=== PATIENT | female | born 1945 | race Caucasian/White ===

== ENCOUNTER → 2018-09-08 | Outpatient (CLI) | payer MEDICARE ==
--- NOTE | 2018-09-08 16:22 | XR ---
EXAMINATION TYPE: XR chest 2V DATE OF EXAM: 09/08/2018 COMPARISON: Prior chest x-ray 09/22/2014 HISTORY: Shortness of breath, edema and abnormal coagulation TECHNIQUE: Frontal and lateral views of the chest are obtained. FINDINGS: Patient is again rotated. There is no focal air space opacity, pleural effusion, or pneumot horax seen. The cardiac silhouette size is within normal limits. The osseous structures are intact . Minimal strand-like density in the left lung may represent subsegmental atelectasis or scar. Surgic al clips present in the upper abdomen. Aorta is dense. IMPRESSION: Findings similar to prior exam. There may be some minimal subsegmental atelectasis or sca rring
--- NOTE | 2018-09-08 16:53 | NM ---
EXAMINATION TYPE: NM pul vent and perfuse DATE OF EXAM: 09/08/2018 COMPARISON: NONE HISTORY: Chest pain. Edema. TECHNIQUE: Utilizing inhalation of 36.7 mCi Tc 99m DTPA aerosol and intravenous injection of 4.97 mC i of Tc 99m MAA, ventilation and perfusion images are acquired post injection in multiple projections . FINDINGS: There are multiple subsegmental ventilation and perfusion abnormalities in the left lower lobe. The v entilation abnormalities are more than the perfusion abnormalities. The right lung appears fairly normal. IMPRESSION: Abnormal ventilation and perfusion in the left lower lung field that corresponds to a low probability of pulmonary embolism. This is consistent with airway disease.
--- NOTE | 2018-09-09 08:34 | US ---
EXAMINATION TYPE: US venous doppler duplex LE BI DATE OF EXAM: 09/08/2018 5:46 PM COMPARISON: NONE CLINICAL HISTORY: R79.1 Abnormal Coagulation,R60.9 Edema,R06.02SOB. Abnormal coagulation. Swelling b ilateral legs. *Difficult exam due to patient body habitus and leg edema. SIDE PERFORMED: Bilateral TECHNIQUE: The lower extremity deep venous system is examined utilizing real time linear array sonog ajith with graded compression, doppler sonography and color-flow sonography. VESSELS IMAGED: External Iliac Vein (EIV) Common Femoral Vein Deep Femoral Vein Greater Saphenous Vein * Femoral Vein Popliteal Vein Small Saphenous Vein * Proximal Calf Veins (* superficial vessels) There is normal flow, compressibility, vascular waveforms. Right Leg: Negative for DVT. Hypoechoic area with echogenic center seen with vascularity upper medial thigh: 4.2 x 2.1 x 1.8cm. Left Leg: Negative for DVT IMPRESSION: No evident deep venous thrombosis at or above the knees. Possible adenopathy right lower extremity at the proximal thigh.
== END | disposition home or self-care (01) ==
LOC: RADNMMAIN 15:25
PROVIDERS: ATTEND Family Medicine
DX: R94.2 Abnormal results of pulmonary function studies (principal); R79.1 Abnormal coagulation profile; R60.9 Edema, unspecified; R06.02 Shortness of breath
CPT/HCPCS: 71046; 93970; 78582; A9540; A9567

== ENCOUNTER → 2018-09-10 | Outpatient (CLI) | payer MEDICARE ==
--- NOTE | 2018-09-10 12:20 | P.STRESS ---
- Stress Test Note Stress Test Results/Findings: Exam Performed: stress echo exercise Exam Date: 09/10/18 Reason for Exam: HEART MURMUR / SOB Height: 5 ft 3 in Weight: 104.326 kg Protocol: DENA Stage: 2 Duration of Exercise: 3:30 Resting Heart Rate: 8 Resting Blood Pressure: 156/49 Maximum Achieved Heart Rate: 128 Maximum Achieved Blood Pressure: 203/69 85% PMHR: 126 100% PMHR: 148 METS: 5.2 Technologist Comment: Stress Test Results/Findings: This is a 72-year-old female with history of hypercholesterolemia, smoking history and family history of ischemic heart disease being evaluated for cardiac status. Patient is also having exertional shortness of breath and has history of heart murmur. Stress data Baseline EKG showed sinus rhythm with normal WI interval and QRS duration. Blood pressure at rest is 156/49, pulse rate of 80. Patient walked on the Dena protocol only 3 minutes and 30 seconds achieving a maximum heart rate of 128 with a blood pressure 153, 101. The test was stopped because of shortness of breath. Patient did not experience any chest pain. EKGs taken during exercise showed about 1 mm horizontal and slightly upsloping ST depression in inferolateral leads. These changes persisted for about 5-6 minutes, in the post exercise period. Echo data: Baseline echo images showed normal wall motion and thickening. Exercise echo images showed augmentation of wall motion in all the segments except the inferobasal wall. Final impression: #1. Borderline positive stress test, based on EKG changes. Patient did not have any chest pain but complained of shortness of breath. #2. Suspicious ischemic changes in the inferobasal segments. #3. Clinical correlation and possible further evaluation to be considered.
== END ==
LOC: RADNMMAIN 09:41
PROVIDERS: ATTEND Family Medicine
DX: R94.39 Abnormal result of other cardiovascular function study (principal); R06.02 Shortness of breath; R01.1 Cardiac murmur, unspecified
CPT/HCPCS: 93351

== ENCOUNTER → 2018-10-01 | Outpatient (CLI) | payer MEDICARE ==
[2018-10-01 11:45] LABS: HCT 36.5 % (34.0-46.0); HGB 11.6 gm/dL (11.4-16.0); MCH 29.7 pg (25.0-35.0); MCHC 31.7 g/dL (31.0-37.0); MCV 93.8 fL (80.0-100.0); Platelet Count 289 k/uL (150-450); RBC 3.89 m/uL (3.80-5.40); WBC 6.4 k/uL (3.8-10.6)
[2018-10-01 11:50] LABS: Potassium 4.6 mmol/L (3.5-5.1)
== END ==
LOC: LABPAT 11:01
PROVIDERS: ATTEND Internal Medicine Interventional Cardiology
DX: Z01.812 Encounter for preprocedural laboratory examination (principal); R07.9 Chest pain, unspecified
CPT/HCPCS: 36415; 80051; 82565; 84520; 85027

== ENCOUNTER 2018-10-14 06:16 | Day surgery (SDC) | payer MEDICARE ==
[2018-10-12 09:13] VITALS: BMI 39.2
[2018-10-14] MEDS ORDERED: ATORVASTATIN 80 MG TAB PO STA (06:32)
[2018-10-14] MEDS ORDERED: NITROGLYCERIN SL TABS 0.4 MG TAB SUBLINGUAL PRN (06:32)
[2018-10-14] MEDS ORDERED: SODIUM CHLORIDE 0.9% 1,000 ML in EMPTY BAG 1 BAG IV ONE (06:32)
[2018-10-14] MEDS ORDERED: ASPIRIN 325 MG TAB PO STA (06:32)
[2018-10-14] MEDS ORDERED: ALPRAZolam 0.5 MG TAB PO PRN (06:32)
[2018-10-14] MEDS ORDERED: ALPRAZolam 0.25 MG TAB PO PRN (06:32)
[2018-10-14 07:19] VITALS: PULSE 54; TEMP 98.4
[2018-10-14] MEDS ORDERED: VERAPAMIL 2.5 MG/ML 2 ML AMP ONE (07:24)
[2018-10-14] MEDS ORDERED: fentaNYL (PF) 50 MCG/ML 2 ML AMP ONE (07:25)
[2018-10-14] MEDS ORDERED: HEPARIN SODIUM 1,000 UN/ML (10ML VL) ONE (07:25)
[2018-10-14] MEDS ORDERED: LIDOCAINE 1% INJ 10MG/ML (20 ML MDV) ONE (07:25)
[2018-10-14] MEDS ORDERED: IV FLUID CONTINUATION 1,000 ML IV ONE (07:33)
[2018-10-14] MEDS ORDERED: fentaNYL (PF) 50 MCG/ML 2 ML AMP IV ONE (07:33)
[2018-10-14] MEDS ORDERED: LIDOCAINE 1% INJ 10MG/ML (20 ML MDV) SQ ONE (07:37)
[2018-10-14] MEDS ORDERED: VERAPAMIL SYRINGE (5 MG/10 ML) INTRAARTER ONE (07:39)
[2018-10-14] MEDS ORDERED: IOPAMIDOL-370 150ML BTL INJ ONE (07:49)
[2018-10-14] MEDS ORDERED: RX INFO: IV CONTRAST WAS GIVEN 1 EACH MISC MISCELLANE PRN (08:00)
[2018-10-14] MEDS ORDERED: SODIUM CHLORIDE 0.9% 1,000 ML IV SCH (08:00)
[2018-10-14] MEDS ORDERED: NON-FORMULARY DRUG (Aspirin Ec 81 MG) PO SCH (09:00)
[2018-10-14] MEDS ORDERED: rOPINIRole HCL 4 MG TABLET PO SCH (09:00)
[2018-10-14] MEDS ORDERED: LISINOPRIL 10 MG TAB PO SCH (09:00)
[2018-10-14] MEDS ORDERED: NON-FORMULARY DRUG (Omeprazole [Omeprazole] 20 MG) PO SCH (09:00)
[2018-10-14] MEDS ORDERED: LEVOTHYROXINE 88 MCG TAB PO SCH (09:00)
[2018-10-14] MEDS ORDERED: PARoxetine 20 MG TAB PO SCH (09:00)
--- NOTE | 2018-10-14 09:36 | CC ---
CARDIAC CATHETERIZATION REPORT Mrs. Melo is a 73-year-old female with known history of hypertension, chronic tobacco use, who has been complaining of progressive dyspnea on exertion, underwent stress test that was consistent with stress-induced ischemia. In view of that, recommendation made regarding cardiac catheterization. The procedure, risks and complication were discussed with the patient, who is in full understanding and agreement. PROCEDURE: Patient was brought to the medical laboratory assistant in the fasting semi-sedated state after receiving fentanyl and Benadryl and achieving moderate conscious sedated state. Using Xylocaine anesthesia and Seldinger technique, a 6-B[place]wanan sheath was introduced in the right radial artery. Selective right and left coronary angiography performed using 5-[place]wanan 3.5 bend right and left Ronak catheter. Multiple views of the coronary artery including hemiaxial views obtained. Following that, a 5-[place]an tight pigtail catheter was introduced in the left ventricle and a 30 degree DILLARD view of the left ventricle was obtained. Following that, catheter and sheath were removed. Hemostasis was obtained with deployment of a TR band. There was no immediate complication patient is returned to her room in stable condition. Of note, the patient received a total of 5000 units of intravenous heparin as well as intra-arterial verapamil. FINDINGS: LEFT MAIN: This is a large-sized vessel, bifurcating into left circumflex, left anterior descending artery, left main coronary artery has no evidence of high-grade stenosis. LEFT ANTERIOR DESCENDING ARTERY: This is a large-sized vessel, reaching toward the apex with a wraparound apex segment, giving rise to a large diagonal branch in mid segment. The left anterior descending artery proximally has a 20% plaque. The rest of the vessel has no high-grade stenosis. LEFT CIRCUMFLEX: This is a large nondominant vessel giving rise to a large obtuse marginal branch. The left circumflex as well as branches have no evidence of obstructive disease. RIGHT CORONARY ARTERY: Tis is a dominant vessel, large in caliber, bifurcating distally into PDA and posterolateral segment and branches. The right coronary artery has no evidence of high-grade stenosis. LEFT VENTRICULOGRAM: Left ventriculogram was performed in 30 degree DILLARD view and revealed normal left ventricular size and systolic function, ejection fraction is 60%. There was no significant mitral regurgitation. HEMODYNAMICS: There was no gradient across the aortic valve, the left ventricle end-diastolic pressure was 16-20 mmHg. CONCLUSION: 1. Mild plaque in the proximal left anterior descending artery. 2. Normal left ventricular size and systolic function. RECOMMENDATION: In view of finding anatomy, would recommend continue medical therapy with aggressive risk modifications being initiated. Those findings and recommendation were discussed with the patient and her family and they are in full understanding and agreement. Duration of procedure is 15 minutes. GARRISON / TERRI: [id number] /
[2018-10-14 13:24] VITALS: RESP 20
[2018-10-14 13:27] VITALS: BP 124/70
[2018-10-14] MEDS ORDERED: ATORVASTATIN 40 MG TAB PO SCH (18:00)
== END 2018-10-14 12:50 | disposition home or self-care (01) ==
LOC: CATHCVL 06:16
PROVIDERS: ATTEND Internal Medicine Interventional Cardiology
DX: I25.10 Atherosclerotic heart disease of native coronary artery without angina pectoris (principal); I10 Essential (primary) hypertension; F17.210 Nicotine dependence, cigarettes, uncomplicated; I87.2 Venous insufficiency (chronic) (peripheral); Z82.49 Family history of ischemic heart disease and other diseases of the circulatory system; R09.89 Other specified symptoms and signs involving the circulatory and respiratory systems; Z79.82 Long term (current) use of aspirin; Z79.890 Hormone replacement therapy; Z79.899 Other long term (current) drug therapy
CPT/HCPCS: 93458; C1894; C1769; J2001; J3010; J1644; Q9967

== ENCOUNTER → 2020-08-09 | Outpatient (CLI) | payer MEDICARE ==
--- NOTE | 2020-08-09 16:27 | XR ---
Lumbosacral spine and sacrum and coccyx HISTORY: Abnormal bone scan Correlation to bone scan from outside institution dated 06/27/2020 5 views lumbosacral spine, 3 views of the sacrum and coccyx Lumbar spine shows postop change status post posterior fusion at L4-5, bone mineralization is reduced . There is a fracture of one of the posterior screws at L5 thought likely on the right. The posterior strut on the left side between the posterior screws at L4 and L5 is not seen. Anterolisthesis grade 1 suspected L4-5, retrolisthesis grade 1 L3-4. There is loss of disc height at intervertebral levels, vacuum phenomena present at L3-4, L4-5. There are laminectomy change is present at L4 and L5, there is a levoscoliosis centered at L3. Surgical clips are present within the pelvis and abdomen. Sacrum and coccyx views are remarkable for the left posterior ilium shows questionable asymmetric scl erosis as compared to the right. Postop change suspected in the right hip. IMPRESSION: Indeterminate uptake involving the posterior left ilium on bone scan could possibly be du e to stress changes, alternate imaging may be of benefit. Fracture of the posterior right screw at L5 may reduce stabilization, posterior strut on the left is absent, correlate with appropriate surgical history. Postop changes are noted. Degenerative disc disease, scoliosis, suspect decreased bone mine ralization.
== END ==
LOC: RADXRMAIN 13:53
PROVIDERS: ATTEND Psychiatry & Neurology Neurology
DX: R93.7 Abnormal findings on diagnostic imaging of other parts of musculoskeletal system (principal)
CPT/HCPCS: 72110; 72220

== ENCOUNTER → 2021-12-07 | Outpatient (CLI) | payer MEDICARE ==
--- NOTE | 2021-12-07 11:30 | CT ---
EXAMINATION TYPE: CT ChestAbdPelvis w con DATE OF EXAM: 12/07/2021 COMPARISON: None HISTORY: 76-year-old female R59.0, history of uterine cancer, Enlarged lymph nodes TECHNIQUE: Contiguous axial scanning of the chest, abdomen, and pelvis performed with IV Contrast, pa tient injected with 50 mL of Isovue 300. 50 mL saline bolus also administered. Delayed images through the kidneys were obtained. Coronal/sagittal reconstructions performed. CT DLP: 2589.2 mGycm Automated exposure control for dose reduction was used. FINDINGS: CHEST: Heart normal size without pericardial effusion. Aorta normal caliber with minimal atherosclerotic arch calcifications and conventional arch vessel br anching anatomy. Prominent but nonenlarged 1.2 cm right axillary lymph node. No additional thoracic lymphadenopathy by CT size criteria. Evaluation of the lungs shows mild emphysematous change. Strandy scarring or atelectasis in the left mid and lower lungs, left greater than right. No consolidation or pleural effusion. ABDOMEN: Small hiatal hernia. Nonspecific 1.1 cm left-sided hepatic hypodensity too small for accurate CT eloise acterization, probable small cyst. Portal venous system is patent. Cholecystectomy clips. Nonenlarged eros hepatic lymph node measuring 7 mm. Nonenlarged or caval lymph node measuring 9 mm. No mesenteric or retroperitoneal lymphadenopathy seen. Adrenal glands, kidneys, spleen, and atrophic pancreas show no gross abnormality. No dilated small bowel, free fluid, or free air. Oral contrast is beginning to enter the cecum. There is moderate stool burden. Redundant sigmoid colo n. No pericolonic inflammatory change. PELVIS: Bladder partially distended. Uterus may be surgically absent. Assessment of the pelvis limited due to metal hardware artifact related to the patient's right hip total arthroplasty. Some surgical clips i n the bilateral shoulder all this. A number of nonenlarged left obturator chain lymph nodes measuring up to 9 mm on the left and 1.4 cm on the right. Left external iliac chain lymph nodes measuring up to 1.5 cm, axial image 96 and 97. Thickened lymph nodes bilateral proximal femoral chains measuring up to 2.4 cm, axial image 119. BONES: Osteitis pubis. Rectal arthroplasty. Moderate degenerative change left hip and left SI joint. Post surgical change L3-S1 posterior and interbody lumbar fusion. Grade 2 anterolisthesis fixed at L4 -L5 and fixed grade 1 at L3-L4. Advanced degenerative disc disease above the fusion L2-L3. Correspond ing laminectomies. Gentle S-shaped scoliosis thoracolumbar spine. IMPRESSION: 1. ENLARGED LYMPH NODES IN BILATERAL PROXIMAL FEMORAL CHAINS IN THE UPPER THIGHS MEASURING UP TO 2.4 CM. CONSIDER TISSUE SAMPLING. 2. Mildly enlarged left external iliac chain lymph nodes up to 1.5 cm. Nonenlarged and mildly enlarge d bilateral obturator chain lymph nodes measuring up to 1.4 cm. If the upper femoral chain lymph node s are positive, these would also be viewed with suspicion. Otherwise, follow-up will be recommended. 3. Status post hysterectomy. Prior surgical clips in both sides of the pelvis. 4. Incidental: COPD with mild emphysema. Small hiatal hernia. Status post L3-S1 posterior and interbo dy lumbar fusion.
== END | disposition home or self-care (01) ==
LOC: RADCTMAIN 08:02
PROVIDERS: ATTEND Internal Medicine Hematology & Oncology
DX: R59.0 Localized enlarged lymph nodes (principal); K44.9 Diaphragmatic hernia without obstruction or gangrene
CPT/HCPCS: 82565; 84520; 71260; 74177; 36415; Q9967 ×2

== ENCOUNTER → 2022-03-08 | Outpatient (CLI) | payer MEDICARE ==
--- NOTE | 2022-03-10 08:01 | PE ---
EXAMINATION TYPE: PET CT fusion skull to thigh DATE OF EXAM: 03/08/2022 COMPARISON: CT chest abdomen and pelvis December 07, 2021 HISTORY: Lymphadenopathy. TECHNIQUE: Following the intravenous administration of 12.0 mCi of F-18 FDG, whole body images are p erformed from the skull base to the midthigh. Images are reviewed on the computer in the coronal, ax ial, and sagittal planes. Reconstructed rotating images are created on independent workstation and r eviewed on the computer. A localization and attenuation correction CT is performed in conjunction w ith the PET scan. Blood glucose level equals 97. SCAN: Initial Scan FINDINGS: SKULL BASE AND NECK: No areas of abnormal hypermetabolic uptake. CHEST, MEDIASTINUM, AND HILAR REGION: No areas of abnormal hypermetabolic uptake. ABDOMEN AND PELVIS: No areas of abnormal hypermetabolic uptake. OSSEOUS STRUCTURES: No areas of abnormal hypermetabolic uptake. OTHER CT: Cholecystectomy clips are redemonstrated. Postsurgical change to the mid to lower lumbar sp ine is redemonstrated. Postsurgical change to the right hip again seen. Dextroconvex scoliosis to the thoracolumbar spine redemonstrated. Nondependent air in bladder identified, correlate clinically for recent catheterization otherwise other etiologies need to be considered. Uterus surgically absent or markedly atrophic. IMPRESSION: No abnormal hypermetabolic enlarged lymph nodes. No areas of abnormal hypermetabolic upta ke to suggest malignancy.
== END | disposition home or self-care (01) ==
LOC: RADXRMAIN 10:56
PROVIDERS: ATTEND Internal Medicine Hematology & Oncology
DX: R59.0 Localized enlarged lymph nodes (principal)
CPT/HCPCS: 78815; A9552

== ENCOUNTER → 2024-01-05 | Outpatient (CLI) | payer MEDICARE ==
[2024-01-05 14:03] VITALS: BP 163/92; PULSE 62
--- NOTE | 2024-01-05 14:49 | P.PAINPG ---
PQRS Measure Charge Sheet Comment: HISTORY OF PRESENT ILLNESS: A 78 yr old female as a referral from Dr Cruz presents today w severe and chronic LBP > 1 yr secondary to DDD, spondylosis and facet arthropathy without myelopathy for evaluation. Pt states pain level is provoked at 8 /10 in intensity, constant, localized in the lumbar spine, predominantly axial, achy in character w occasional shooting pain towards the R hip. Pain is provoked by any movement. Pain is alleviated by PT x 6 wks which ended in Winter 2022, physician guided home stretches daily since 2022, medications (Tyl, Ibu), repositioning and rest . Oswestry axial pain score at 32. 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 Bro- NM All: See list Meds: See list REVIEW OF ORGAN SYSTEMS: CONSTITUTIONAL: No fevers or chills. No recent weight loss. NEUROLOGICAL: + numbness and tingling along the distal extremities. No seizure disorders or headaches. MUSCULOSKELETAL: + pain PSYCHIATRIC: Denies current depression or suicidal thoughts. Physical Examinations : Constitutional : Cooperative , not in acute distress . Neurologic : Cranial nerve II to XII intact. No focal neurological deficits. Psychiatric : alert & oriented x 3. Matching mood & appropriate affect. Judgment & insight intact. Musculoskeletal : Cervical Spine Motor strength in the deltoid and biceps: Normal right side. Normal Left side Motor strength biceps and the wrist extensors: Normal right side . Normal left side Motor strength in the triceps muscle: Normal right side. Normal left side Deep tendon reflexes: Normal at the biceps. Normal at Brachioradialis. Normal at triceps Vertebral body tenderness to deep palpation over Cervical facet loading test: positive bilaterally Spurling test: positive bilaterally Neck distraction test: positive bilaterally Rohan sign: positive bilaterally Lumbar spine +well healed vertical incisional scar Motor strength lower extremities ,thigh and legs 5/5 Right side , 5/5 Left side Deep tendon reflexes : Normal Knee Jerk. Normal Ankle Jerk Vertebral body tenderness over L2 Hassan Test positive R> L L1-L2, L2-L3 Lumbar facet Loading Test: positive Right / positive Left Range of motion of the lumbar spine Flexion 30 degrees, extension 10 degrees Straight Leg Raise test: Left/ Right positive at degrees Neftali test: positive right / positive left. Severe tenderness over the Sacroiliac joint on the Right / Left sides Gaenslen test: positive bilaterally Seated flexion test: positive bilaterally. Sacral spine : Severe tenderness over the Sacroiliac joint: right side / left side Range of motion: Flexion of the lumbar spine <60 degrees Range of motion: Extension of the lumbar spine <20 degrees Gaenslen's Test positive Neftali test: positive right side / left side Thigh Thrust Test Sacral Thrust Test Imaging: Lumbar x ray from 2020 reviewed Assessment/ Plan : Lumbar radiculopathy Recommendation of lumbar x ray M54.16. All questions answered. I have spent greater than 30 minutes on patient care today. Dr Calloway was available by phone for the evaluation of this patient. The time was used to review the medical records including relevant urine studies and Prescription history (MAPs), review of the available imaging, evaluation and examination of the patient, coordination of care with the medical staff and if applicable referring physicians, as well as creation of the medical record PQRS Narrative: Smoking Status Former smoker Home Medications: Ambulatory Orders Levothyroxine Sodium [Synthroid] 88 mcg PO DAILY 06/30/17 rOPINIRole HCL [Requip] 5 mg PO QID 06/30/17 Omeprazole 20 mg PO DAILY 10/12/18 Spironolactone 25 mg PO 01/05/24 Controlled Substance Measures - Controlled Substance Measures Is patient prescribed a controlled substance at discharge?: No
--- NOTE | 2024-01-05 15:58 | XR ---
EXAMINATION TYPE: XR lumbar spine 2 or 3V DATE OF EXAM: 01/05/2024 2:48 PM CLINICAL INDICATION:Female, 78 years old with history of M54.16 RADICULOPATHY, LUMBAR; [facility] COMPARISON: 08/09/2020. TECHNIQUE: XR lumbar spine 2 or 3V - Frontal, lateral and coned in L5-S1 lateral views of the spine. FINDINGS: Interval hardware removal at L4-L5. Laminectomy changes noted in the lower spine at L3-L4 5 .. No evidence of any acute osseous pathology. No evidence of loss of vertebral body height is seen. There is grade 2 anterolisthesis of L4 on L5 alignment with scoliosis apex left L2-L3. Scattered dis c space narrowing. Multilevel marginal osteophyte formation throughout the visualized spine. There is facet joint arthropathy throughout the spine. Scattered at least mild neural foraminal stenosis thro ughout the lower lumbar spine. Right upper quadrant, 60 mg. IMPRESSION: 1. No acute fracture. 2. Moderate multilevel disc degeneration. 3. Grade 2 anterolisthesis of L4 on L5 4. Scoliosis changes.
== END ==
LOC: PNWHC3 13:23
PROVIDERS: ATTEND Specialist
DX: M47.26 Other spondylosis with radiculopathy, lumbar region (principal); M51.16 Intervertebral disc disorders with radiculopathy, lumbar region; Z87.891 Personal history of nicotine dependence
CPT/HCPCS: 72100; G0463; 99211

== ENCOUNTER → 2024-01-21 | Outpatient (CLI) | payer MEDICARE ==
--- NOTE | 2024-02-17 19:41 | MR ---
EXAMINATION TYPE: MR lumbar spine wo con DATE OF EXAM: 01/23/2024 COMPARISON: No comparison available on downtime PACS. HISTORY: Post hardware removal, chronic low back pain CONTRAST: 0 mL intravenous Gadavist. TECHNIQUE: Multiplanar, multisequence images of the lumbar spine were acquired. 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 This area measures 3.8 c m AP by 7.2 cm transverse by 8.2 cm in craniocaudal dimension. This extends from L2 to the L5-S1 leve l. This may have some internal elements along the wall. Wall otherwise appears smooth. Communication with the spinal canal is not clearly identified on these images. Within the posterior soft tissues posterior to the paraspinal musculature there is a low signal area which is not hyperintense on T2-weighted sequences. This could be some healing postsurgical change an d/or hemorrhage/hematoma. This area measures 7.7 cm in craniocaudal dimension by 2.1 cm transverse by 2.3 cm AP. This extends from L2 through S1 levels. There is severe right foraminal stenosis L3-4 and L5-S1. Moderate right foraminal narrowing is presen t L4-5. Moderate foraminal narrowing is present left L3-4 and moderate to severe foraminal narrowing on the left is at L5-S1. L5-S1: There is a grade 1 spondylolisthesis of L5 anteriorly on S1. Modic type II degenerative change s are along the endplates. There is a right paracentral residual disc bulge with moderate epidural sp graham impression. Some mild displacement of the thecal sac is noted. No AP spinal canal stenosis is pre sent. L4-L5: There is a grade 1 spondylolisthesis of L4 anteriorly on L5. Modic type II degenerative endpla te changes are present. No spinal canal stenosis is present. No thecal sac compression is evident. L3-L4: There is narrowing of the L3-4 disc height. Modic type II degenerative changes are present. No spinal canal stenosis is evident. L2-L3: There is loss of disc height at this level. No focal disc herniation or significant disc bulge is evident. No spinal canal stenosis. L1-L2: Appears preserved. Disc desiccation is present. No spinal canal stenosis is evident. Mild left paracentral disc bulge may be present with intrathecal sac contact. T12-L1: No significant disc bulge or disc herniation. No spinal canal stenosis. No foraminal stenos is. Neural foramen are patent.. IMPRESSION: 1. There may be a superficial hematoma formation posterior to the central paraspinal muscles. 2. 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 No communication is identified with the sp inal canal. 3. Multilevel foraminal narrowing discussed above. This appears greater on the right. 4. Grade 1 spondylolisthesis L4 on L5 and L5 on S1. 5. Multilevel degenerative disc changes.
== END | disposition home or self-care (01) ==
LOC: RADMRIMAIN 11:53
PROVIDERS: ATTEND Specialist
DX: M48.061 Spinal stenosis, lumbar region without neurogenic claudication (principal); M43.16 Spondylolisthesis, lumbar region; M43.17 Spondylolisthesis, lumbosacral region; M51.16 Intervertebral disc disorders with radiculopathy, lumbar region; M47.26 Other spondylosis with radiculopathy, lumbar region; G96.198 Other disorders of meninges, not elsewhere classified; G89.29 Other chronic pain
CPT/HCPCS: 72148

== ENCOUNTER → 2024-01-26 | Outpatient (CLI) | payer MEDICARE | LOC: PNWHC3 13:45 | PROVIDERS: ATTEND Specialist | DX: M46.1 Sacroiliitis, not elsewhere classified (principal); M47.26 Other spondylosis with radiculopathy, lumbar region; Z91.040 Latex allergy status; Z91.048 Other nonmedicinal substance allergy status; Z87.891 Personal history of nicotine dependence | CPT/HCPCS: 99211 ==

== ENCOUNTER 2024-03-04 10:24 | Day surgery (SDC) | payer MEDICARE ==
[2024-02-27 11:02] VITALS: BMI 36.8
[2024-03-04] MEDS ORDERED: LACTATED RINGERS 1,000 ML IV SCH (11:20)
[2024-03-04 11:39] VITALS: TEMP 98.5
[2024-03-04] MEDS ORDERED: ROPIVACAINE 5MG/ML 20ML VIAL ONE (12:27)
[2024-03-04] MEDS ORDERED: methylPREDNISolone ACETATE 40 MG/ML 1 ML VIAL ONE (12:27)
[2024-03-04] MEDS ORDERED: IOPAMIDOL M200 10 ML VIAL ONE (12:27)
--- NOTE | 2024-03-04 12:36 | P.PCN ---
Date of Procedure: 03/04/24 Procedure(s) Performed: Procedure= Right sacroiliac joints steroid injection under fluoroscopy guidance (fluoroscopy image stored on file in the radiology Department ) Preoperative diagnosis= 1-sacroiliitis 2-lumbar degenerative disc disease 3- lumbar facet arthropathy Postoperative diagnosis=Same as preop Diagnosis . Complication = none Condition= stable Anesthesia= local anesthesia with ropivacaine 0.5% 4 ml only Indication for the procedure= patient complaining of low back pain , examination was positive for severe tenderness over the Right sacroiliac joints, and patient diagnosed with sacroiliitis, for this reason ,she was good candidate for Right sacroiliac joint steroid injection. Description of the procedure= procedure risk and benefits discussed with the patient, including but not limited, risk of infection and bleeding, and ALLERGIC reaction to the medication and not complete pain relief and patient agreed with the preceding patient taken to the operating room, placed in prone position or standard monitors applied to the patient then after induction of anesthesia back prepped with chlorhexidine 3 times , Then under strict sterile technique, first I did the right sacroiliac joint the which was identified under fluoroscopy guidance been local infiltration of the skin and subcu interstitial with lidocaine 1% then 22-gauge Quincke Needle advanced slowly under fluoroscopy and placed in the right sacroiliac joint needle placement confirmed with AP and oblique and lateral view, then after that Isovue 200 one mL injected which confirmed the correct needle placement with the appropriate arthrogram of the sacroiliac joint, and after appropriate needle placement confirmed and after negative aspiration, or heme , then Ropivacaine 0.5% 2 mL, and 40 mg of Depo-Medrol mixed together and injected in the right sacroiliac joint after negative aspiration patient tolerated the procedure well without any complication.
[2024-03-04] MEDS: IV FLUID CONTINUATION 800 ML IV ONE (12:38)
[2024-03-04 12:40] VITALS: RESP 16
--- NOTE | 2024-03-04 12:41 | FL ---
EXAMINATION TYPE: FL guided pain mgmt statistic DATE OF EXAM: 03/04/2024 HISTORY: Fluoroscopy time Total dose area product (DAP) in uGy*m?, mGy*cm? (or similar): 0.83692. IMPRESSION: 1. Fluoroscopy time. [facility], , 03/04/2024 12:39 PM
[2024-03-04 12:53] VITALS: BP 144/78; PULSE 69
== END 2024-03-04 13:08 | disposition home or self-care (01) ==
LOC: ORPAIN 10:24
PROVIDERS: ATTEND Specialist
DX: M46.1 Sacroiliitis, not elsewhere classified
CPT/HCPCS: 27096

== ENCOUNTER → 2024-03-17 | Outpatient (CLI) | payer MEDICARE ==
[2024-03-17 14:09] VITALS: BP 128/70; PULSE 60; RESP 20
--- NOTE | 2024-03-17 14:38 | P.PAINPG ---
PQRS Measure Charge Sheet Comment: HISTORY OF PRESENT ILLNESS: A 78 yr old female presents today w severe and chronic LBP > 1 yr secondary to radiculopathy, spondylosis and facet arthropathy without myelopathy, R Sacroiliitis for evaluation s/p R SI injection #1. Pt stats she experienced 60 % pain relief x 2 wks s/p procedure. Pt states pain level is provoked at 4-5 /10 in intensity, constant, localized in the lumbar spine, predominantly axial, achy in character w occasional shooting pain towards the R hip. Pain is provoked by any movement. Pain is alleviated by PT x 6 wks which ended in Winter 2022, physician guided home stretches daily since Winter 2022, medications, repositioning and rest . Interventional procedures include R SI x1 Medications include Tyl, Ibu REVIEW OF ORGAN SYSTEMS: CONSTITUTIONAL: No fevers or chills. No recent weight loss. NEUROLOGICAL: + numbness and tingling along the distal extremities. No seizure disorders or headaches. MUSCULOSKELETAL: + pain PSYCHIATRIC: Denies current depression or suicidal thoughts. Physical Examinations : Constitutional : Cooperative , not in acute distress . Neurologic : Cranial nerve II to XII intact. No focal neurological deficits. Psychiatric : alert & oriented x 3. Matching mood & appropriate affect. Judgment & insight intact. Musculoskeletal : Cervical Spine Motor strength in the deltoid and biceps: Normal right side. Normal Left side Motor strength biceps and the wrist extensors: Normal right side . Normal left side Motor strength in the triceps muscle: Normal right side. Normal left side Deep tendon reflexes: Normal at the biceps. Normal at Brachioradialis. Normal at triceps Vertebral body tenderness to deep palpation over Cervical facet loading test: positive bilaterally Spurling test: positive bilaterally Neck distraction test: positive bilaterally Rohan sign: positive bilaterally Lumbar spine +well healed vertical incisional scar Motor strength lower extremities ,thigh and legs 5/5 Right side , 5/5 Left side Deep tendon reflexes : Normal Knee Jerk. Normal Ankle Jerk Vertebral body tenderness over L2 Hassan Test positive R> L L1-L2, L2-L3 Lumbar facet Loading Test: positive Right / positive Left Range of motion of the lumbar spine Flexion 30 degrees, extension 10 degrees Straight Leg Raise test: Left/ Right positive at degrees Neftali test: positive right / positive left. Severe tenderness over the Sacroiliac joint on the Right / Left sides Gaenslen test: positive bilaterally Seated flexion test: positive bilaterally. Sacral spine : Severe tenderness over the Sacroiliac joint: right side / left side Range of motion: Flexion of the lumbar spine <60 degrees Range of motion: Extension of the lumbar spine <20 degrees Gaenslen's Test positive Neftali test: positive right side / l eft side Thigh Thrust Test Sacral Thrust Test Imaging: Lumbar x ray from 2020 reviewed MRI non contrast lumbar spine from 01/21/24 reviewed Assessment/ Plan : L4-S1 spondylosis, R Sacroiliitis TENS unit to be used at home [id number]. Will manage residual pain and may RTC on an as needed basis. All questions answered. I have spent greater than 30 minutes on patient care today. Dr Calloway was available by phone for the evaluation of this patient. The time was used to review the medical records including relevant urine studies and Prescription history (MAPs), review of the available imaging, evaluation and examination of the patient, coordination of care with the medical staff and if applicable referring physicians, as well as creation of the medical record - Pain Location Right Hip Pharmacological Interventions: Epidural, Medication PQRS Narrative: Smoking Status Former smoker Hx Alcohol Use (MH) No Home Medications: Ambulatory Orders Levothyroxine Sodium [Synthroid] 88 mcg PO QAM 06/30/17 rOPINIRole HCL [Requip] 2 mg PO TID 06/30/17 Omeprazole 20 mg PO QAM 10/12/18 Spironolactone 12.5 mg PO QAM 01/05/24 Furosemide [Lasix] 20 mg PO QAM 02/27/24 Ibuprofen [Motrin] 600 mg PO Q8HR PRN 02/27/24 Controlled Substance Measures - Controlled Substance Measures Is patient prescribed a controlled substance at discharge?: No
== END ==
LOC: PNWHC3 13:54
PROVIDERS: ATTEND Specialist
DX: M46.1 Sacroiliitis, not elsewhere classified
CPT/HCPCS: 99211

== ENCOUNTER 2024-10-06 05:31 | Day surgery (SDC) | payer MEDICARE ==
[2024-10-04 10:56] VITALS: BMI 38.4
[2024-10-06] MEDS ORDERED: ALPRAZolam 0.25 MG TAB PO PRN (05:48)
[2024-10-06] MEDS ORDERED: NITROGLYCERIN SL TABS 0.4 MG TAB SUBLINGUAL PRN (05:48)
[2024-10-06] MEDS ORDERED: ALPRAZolam 0.5 MG TAB PO PRN (05:48)
[2024-10-06] MEDS: SODIUM CHLORIDE 0.9% 1,000 ML in EMPTY BAG 1 BAG IV SCH (06:15)
[2024-10-06] MEDS: IV FLUID CONTINUATION 1,000 ML IV ONE (06:15)
[2024-10-06 06:31] VITALS: TEMP 98.7
[2024-10-06] MEDS: ASPIRIN 325 MG TAB PO STA (06:31)
[2024-10-06] MEDS: fentaNYL (PF) 50 MCG/ML 2 ML AMP IVP ONE (08:17)
[2024-10-06] MEDS: LIDOCAINE 1% INJ 10MG/ML (20 ML MDV) SQ ONE (08:20)
[2024-10-06] MEDS: VERAPAMIL SYRINGE (5 MG/10 ML) INTRAARTER ONE (08:21)
[2024-10-06] MEDS: HEPARIN SODIUM 1,000 UN/ML (10ML VL) IVP ONE (08:26)
[2024-10-06] MEDS: HEPARIN SODIUM,PORCINE 10,000 UNIT in SODIUM CHLORIDE 0.9% 1,000 ML IRRIGATION PRN (08:27)
[2024-10-06] MEDS: HEPARIN SODIUM,PORCINE (1 ML) 2,500 UNIT in SODIUM CHLORIDE 0.9% 250 ML IRRIGATION PRN (08:27)
[2024-10-06] MEDS: IOPAMIDOL-370 100ML BTL INJ ONE (08:36)
[2024-10-06] MEDS ORDERED: RX INFO: IV CONTRAST WAS GIVEN 1 EACH MISC MISCELLANE PRN (08:47)
--- NOTE | 2024-10-06 08:53 | P.CARDCATH ---
Date of Procedure: 10/06/24 Description of Procedure: Cardiac Catheterization: The patient is a 79-year-old female with a known history of hypertension, hyperlipidemia, mild CAD by cardiac catheterization in 2019 who presented with symptoms of progressive dyspnea and had an abnormal MPI. Recommendations were made regarding cardiac catheterization, the risks and the complications were discussed with the patient who is in full understanding and agreement. Procedure Description: Patient was brought to construction craft laborer in fasting semi-sedated state after receiving Fentanyl and Benadryl achieiving moderate conscious sedated state. Using Xylocaine Anesthesia and modified Seldinger technique, a 6-Filipino sheath was introduced in the right radial artery . Subsequently, selective coronary angiography was performed using a 5-Filipino 3.5 bend left Ronak and 5 bend right Ronak catheter. Multiple views of the coronary artery including hemiaxial views were obtained. The right Ronak catheter was used to cross the aortic valve and LVEDP was calculated. Following that, catheter and sheath were removed. Hemostasis was obtained with deployment of vascular band . There was no immediate complication. Patient was returned to room in stable condition. Of note, the patient received a total of 5000 units of intravenous heparin as well as intra-arterial verapamil. Findings: Left main: This is a large size vessel, bifurcating into LAD and left circumflex, left main has no obstructive disease LAD: This is a large size vessel, reaching to the apex with a wraparound apex segment, giving rise to a large diagonal branch in the proximal segment. The proximal LAD has a 30 to 40% eccentric plaque prior to the takeoff of the diagonal branch, the rest of the vessel has no high-grade stenosis Left circumflex: This is a large nondominant vessel giving rise to a large obtuse marginal branch, the left circumflex has no obstructive disease RCA: This is a large dominant vessel with a posterior takeoff giving rise to a PDA and a PLV distally. The right coronary artery and its branches have no evidence of obstructive disease Left Ventriculogram: Not performed Hemodynamics: There was no gradient across aortic valve, LVEDP was 18-20 mmHg Conclusion: 1. Mild to moderate disease in the proximal LAD with no significant progression since 2019 2. Right dominance 3. Mildly elevated LVEDP Recommendations: I have recommended to continue medical therapy with the aggressive coronary risks modification has been initiated. At this time I see no significant progression of disease compared with the prior images. The findings and the recommendations were discussed with the patient and the family and they were in full understanding and agreement. Duration of sedation is 18 minutes.
[2024-10-06] MEDS ORDERED: SODIUM CHLORIDE 0.9% 1,000 ML IV SCH (09:00)
[2024-10-06 13:48] VITALS: BP 152/70; PULSE 58; RESP 14
[2024-10-07] MEDS ORDERED: LEVOTHYROXINE 88 MCG TAB PO SCH (06:30)
[2024-10-07] MEDS ORDERED: PANTOPRAZOLE 40 MG TABLET PO SCH (07:30)
[2024-10-07] MEDS ORDERED: SPIRONOLACTONE 25 MG TAB PO SCH (09:00)
== END 2024-10-06 12:22 | disposition home or self-care (01) ==
LOC: CATHCVL 05:31
PROVIDERS: ATTEND Internal Medicine Interventional Cardiology
DX: I25.10 Atherosclerotic heart disease of native coronary artery without angina pectoris (principal); I10 Essential (primary) hypertension; E78.5 Hyperlipidemia, unspecified; M19.90 Unspecified osteoarthritis, unspecified site; F10.90 Alcohol use, unspecified, uncomplicated; Z87.891 Personal history of nicotine dependence; Z79.82 Long term (current) use of aspirin; Z79.899 Other long term (current) drug therapy
CPT/HCPCS: 93458; 99152; C1894; C1769; J1644 ×3; J2003; J3010; Q9967

== ENCOUNTER → 2024-11-23 | Outpatient (CLI) | payer MEDICARE ==
--- NOTE | 2024-11-23 12:02 | MM ---
Reason for Exam: Clinical finding. Indicated Problems: Lump or thickening of the right side for 4 Month(s). Patient History: Menarche at age 13. First Full-Term at age 19. Left ovary removed at age 50. Right ovary removed at age 50. Hysterectomy at age 50. Endometrial cancer, age 50. Risk Values: Kasie 5 year model risk: 1.2%. NCI Lifetime model risk: 2.0%. Prior Study Comparison: No prior studies available for comparison. Tissue Density: There are scattered areas of fibroglandular density. Findings: Analyzed By CAD. There is a 2.5 cm spiculated, high-density mass located at 11:00 right breast middle depth. There is some pleomorphic calcifications extending anteriorly from the mass. In addition, located just posterior, there is a 7 mm adjacent nodule. Overall span of these findings is nearly 7 cm as measured on the lateral view. A few benign scattered round calcifications are noted on the left. Further ultrasound evaluation is recommended. Overall Assessment: Incomplete: need additional imaging evaluation, BI-RAD 0 Management: Diagnostic Breast Ultrasound of the right breast. [facility], , 11/23/2024 11:59 AM. Electronically signed and approved by: Oumou Ott M.D. Radiologist
--- NOTE | 2024-11-23 12:46 | USB ---
Reason for Exam: Clinical finding. Patient History: Menarche at age 13. First Full-Term at age 19. Left ovary removed at age 50. Right ovary removed at age 50. Hysterectomy at age 50. Endometrial cancer, age 50. Risk Values: Kasie 5 year model risk: 1.2%. NCI Lifetime model risk: 2.0%. Technique: Method: Whole Breast Handheld. Findings: The whole breast of the right breast, the axilla of the right breast and the retroareolar of the right breast were scanned. A complete US of all four quadrants of the breast, axilla, and retro-areolar region were reviewed. At the 12:00 position, 5 cm from the nipple, there is a irregular, hypoechoic, solid mass with angular margins measuring 2.3 x 1.9 x 1.7 cm. This shows internal vascularity and is very suspicious, mammographic correlate. No other solid or cystic lesions or axillary adenopathy. Overall Assessment: Highly suggestive of malignancy, BI-RAD 5 Management: Ultrasound Core Biopsy of the right breast. Stereotactic Core Biopsy of the right breast. Ultrasound core needle biopsy of the dominant 12:00 mass. Stereotactic core needle biopsy of the calcifications which extend anteriorly. The dominant nodule, adjacent smaller nodule, and anterior calcifications cover a region of approximately 7 cm. Results were given to the patient verbally at the time of exam. [facility], , 11/23/2024 12:43 PM. Electronically signed and approved by: Oumou Ott M.D. Radiologist
== END | disposition home or self-care (01) ==
LOC: RADMAMWWP 11:05
PROVIDERS: ATTEND Internal Medicine
DX: R92.1 Mammographic calcification found on diagnostic imaging of breast (principal); R92.323 Mammographic fibroglandular density, bilateral breasts; N63.10 Unspecified lump in the right breast, unspecified quadrant
CPT/HCPCS: 77062; 77066

== ENCOUNTER → 2024-12-13 | Day surgery (SDC) | payer MEDICARE ==
[~2024-12-13] MED LIST: ALPRAZolam 0.25 MG TAB PO PRN
[2024-12-13 10:20] VITALS: RESP 16; TEMP 98.1
[2024-12-13 11:24] VITALS: BP 112/62; PULSE 80
--- NOTE | 2024-12-16 10:36 | USB ---
Risk Values: Kasie 5 year model risk: 1.2%. NCI Lifetime model risk: 2.0%. Prior Study Comparison: 11/23/2024 Bilateral MG 3D diag mammo w/cad [facility], [facility]. Pathology Description: Location: 12 o'clock. Marker Left Behind. Needle Type: Celero Cores: 2 Gauge: 12 Pathology Description: Location: 12 o'clock. Marker Left Behind. Specimen Radiograph. Calcium Found: Yes Approach: CC FA Needle Type: Eviva Cores: 7 Skin Nicks: 2 Gauge: 9 The procedure of stereotactic guided core biopsy was explained to the patient. Benefits, alternatives, and risks were discussed. An informed consent was then obtained. The shortness pathway for biopsy was chosen. Shortness pathway was cranial to caudal approach. A vacuum assisted biopsy gun was used to obtain multiple core samples. The patient tolerated the procedure well without any immediate complication. Patient then taken to ultrasound for ultrasound-guided core biopsy . The procedure of ultrasound guided core biopsy was explained to the patient. Benefits, alternatives, and risks were discussed. An informed consent was then obtained. The patient was placed in supine positioning for imaging and for the procedure. Preprocedure ultrasound redemonstrates a lobulated 2.1 cm hypoechoic hypervascular mass at 12:00 position. Overlying skin was prepped and draped in usual sterile fashion. 9 ml 1% lidocaine with epinephrine buffered with bicarbonate was used as anesthetic into the skin and subcutaneous tissue up to area of concern in the right breast, 5 cm from nipple. Under ultrasound guidance, a vacuum assisted biopsy gun device was used to obtain 2 core samples. Following this, a biopsy clip was left in the lesion. Postprocedure mammogram: The patient was transferred to mammography for physician ordered post procedure mammogram for clip placement verification. Post procedure mammogram demonstrates appropriate placement of clip from stereotactic and ultrasound-guided core biopsies. The patient was kept in the radiology department for short stay after the procedures and then discharged home in stable condition. Targeted calcifications are identified in specimen mammogram. Post biopsy mammogram shows the clip to appear in satisfactory position relative to the targeted area of concern on the preprocedure images. Impression: SUCCESSFUL, UNCOMPLICATED STEREOTACTIC GUIDED AND ULTRASOUND-GUIDED CORE BIOPSIES OF TWO AREAS OF CONCERN IN THE RIGHT BREAST. PATHOLOGY STATUS: Results pending [facility], , 12/13/2024 12:50 PM. Pathology Results: Result: Malignant, Invasive ductal carcinoma. 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 RIGHT BREAST, DESIGNATED 12:00, ULTRASOUND GUIDED CORE BIOPSY: Invasive high-grade ductal carcinoma, grade 3 (see surgical pathology cancer case summary and comment). Overall Assessment: Malignant Management: Surgical Consultation of the right breast. Electronically signed and approved by: Dayo Jacob M.D.
== END ==
LOC: RADMAMWWP 09:44
PROVIDERS: ATTEND Surgery
DX: D05.11 Intraductal carcinoma in situ of right breast (principal)
CPT/HCPCS: 88305; 19081; 19083; A4648 ×2; J2003

== ENCOUNTER → 2025-01-06 | Outpatient (CLI) | payer MEDICARE ==
--- NOTE | 2025-01-06 16:15 | PE ---
EXAMINATION TYPE: PET CT fusion skull to thigh DATE OF EXAM: 01/06/2025 COMPARISON: Prior PET/CT March 08, 2022. Ultrasound right breast biopsy December 13, 2024. HISTORY: Right-sided breast cancer newly diagnosed earlier in month TECHNIQUE: Following the intravenous administration of 13.56 mCi of F-18 FDG, whole body images are performed from the skull base to the midthigh. Images are reviewed on the computer in the coronal, a xial, and sagittal planes. Reconstructed rotating images are created on independent workstation and reviewed on the computer. A localization and attenuation correction CT is performed in conjunction with the PET scan. SCAN: Initial Scan FINDINGS: SKULL BASE AND NECK: No areas of suspicious abnormal hypermetabolic uptake. CHEST, MEDIASTINUM, AND HILAR REGION: Corresponding to recent ultrasound there is lobulated 2.4 cm ma ss 12:00 position right breast with abnormal hypermetabolic uptake, Max SUV is 7.8. No hypermetabolic or enlarged right axillary lymph nodes are identified. No additional areas of suspicious abnormal hy permetabolic uptake throughout the thorax. ABDOMEN AND PELVIS: No areas of suspicious abnormal hypermetabolic uptake OSSEOUS STRUCTURES: No areas of suspicious abnormal hypermetabolic uptake. OTHER CT: Bilateral aphakia is seen. Small-sized thyroid gland is noted. Cardiomegaly is present. Mod erate-sized hiatal hernia is seen. Cholecystectomy clips are redemonstrated. Postsurgical change to the mid to lower lumbar spine is red emonstrated. Postsurgical change to the right hip again seen. Dextroconvex scoliosis to the thoracolu mbar spine redemonstrated. Uterus surgically absent. A pessary type device in the pelvis is noted. IMPRESSION: Known primary right breast neoplasm identified. No suspicious adenopathy or metastatic di sease seen. [facility], , 01/06/2025 4:12 PM
== END | disposition home or self-care (01) ==
LOC: RADPETMAIN 10:32
PROVIDERS: ATTEND Internal Medicine
DX: C50.811 Malignant neoplasm of overlapping sites of right female breast (principal)
CPT/HCPCS: 78815; A9552